=== PATIENT | female | born 1960 | race Asian ===

== ENCOUNTER → 2017-02-02 | Outpatient (CLI) | payer OTHER | LOC: BMCIMAGING 12:41 | PROVIDERS: ATTEND Internal Medicine | DX: Z12.31 Encounter for screening mammogram for malignant neoplasm of breast (principal); R92.8 Other abnormal and inconclusive findings on diagnostic imaging of breast | CPT/HCPCS: G0202 ==

== ENCOUNTER → 2017-02-16 | Outpatient (CLI) | payer OTHER | LOC: BMCIMAGING 10:28 | PROVIDERS: ATTEND Internal Medicine | DX: Z12.39 Encounter for other screening for malignant neoplasm of breast (principal); R92.0 Mammographic microcalcification found on diagnostic imaging of breast | CPT/HCPCS: G0206 ==

== ENCOUNTER → 2017-03-06 | Day surgery (SDC) | payer OTHER ==
[~2017-03-06] MED LIST: BUPIVACAINE 0.5% 10 ML SDV ONE; LIDOCAINE 1% 300 MG/30 ML SDV ONE; THROMBIN (BOVINE) 5,000 UNIT VIAL TP ONE
== END | disposition home or self-care (01) ==
LOC: FIMAGING 07:23
PROVIDERS: ATTEND Internal Medicine
PROC: 0HBU3ZX Excision of Left Breast, Percutaneous Approach, Diagnostic (ICD-10-PCS; principal; 2017-03-06)
PROC: BH01ZZZ Plain Radiography of Left Breast (ICD-10-PCS; principal; 2017-03-06)
DX: D24.2 Benign neoplasm of left breast (principal); R92.0 Mammographic microcalcification found on diagnostic imaging of breast
CPT/HCPCS: G0206

== ENCOUNTER → 2017-03-27 | Outpatient (CLI) | payer OTHER | LOC: BMCIMAGING 11:19 | PROVIDERS: ATTEND Internal Medicine | DX: Z13.820 Encounter for screening for osteoporosis (principal); M81.0 Age-related osteoporosis without current pathological fracture ==

== ENCOUNTER → 2017-04-10 | Outpatient (CLI) | payer OTHER | LOC: FIMAGING 09:07 | PROVIDERS: ATTEND Internal Medicine | DX: N64.4 Mastodynia (principal); J98.4 Other disorders of lung; J84.10 Pulmonary fibrosis, unspecified ==

== ENCOUNTER → 2017-09-04 | Outpatient (CLI) | payer OTHER | LOC: FIMAGING 11:32 | PROVIDERS: ATTEND Internal Medicine | DX: R92.8 Other abnormal and inconclusive findings on diagnostic imaging of breast (principal) ==

== ENCOUNTER → 2018-02-07 | Outpatient (CLI) | payer OTHER | LOC: FIMAGING 11:01 | PROVIDERS: ATTEND Internal Medicine | DX: Z12.31 Encounter for screening mammogram for malignant neoplasm of breast (principal) ==

== ENCOUNTER 2018-05-18 16:14 | Emergency (ER) | payer OTHER ==
[2018-05-18] MEDS ORDERED: IBUPROFEN 200 MG TAB PO ONE (16:54)
--- NOTE | 2018-05-18 16:57 | EDPHY ---
H & P Time Seen by Provider: 05/18/18 16:20 HPI/ROS: 57 yo F presents c/o right wrist pain after slipping on ice , falling on outstretched hand. No numbness or tingling. No other injuries. Review of systems As per HPI General no fever no chills no weakness HEENT no eye pain no eye discharge. No eye redness, no sore throat Respiratory no cough, no shortness of breath Cardiac no chest pain, no peripheral edema GI no abdominal pain, no diarrhea, no constipation, no nausea, no vomiting no flank pain, no hematuria, no dysuria Musculoskeletal no myalgias, positive joint pain Heme no easy bruising, no easy bleeding Endo no polyuria, no polydipsia Skin no rashes, no pruritus Neuro no syncope, no dizziness, no headaches Psych is no suicidal ideation, no homicidal ideation Past Medical/Surgical History: scleroderma Social History: teaches at [employer] Smoking Status: Never smoked Physical Exam: 57 yo F alert and oriented in mod distress secondary to right wrist pain at,nc neck supple lungs cta bilat heart rrr abd nabs soft ext right upper ext edema and ttp of distal wrist, good cap refill, good radial and ulnar pulses no discoloration of hand, wrist from elbow and shoulder Constitutional: Initial Vital Signs Temperature (C) 36.9 C 05/18/18 16:26 Heart Rate 59 L 05/18/18 16:26 Respiratory Rate 16 05/18/18 16:26 Blood Pressure 86/59 L 05/18/18 16:26 O2 Sat (%) 98 05/18/18 16:26 O2 Delivery Mode Room Air Allergies/Adverse Reactions: clindamycin Allergy (Verified 05/18/18 16:23) Penicillins Allergy (Verified 05/18/18 16:23) Home Medications: Medication Instructions Recorded Hydrocodone/Acetaminophen [Vicodin 1 each PO Q6 PRN #20 tablet 05/18/18 5-300 mg Tablet] Multivitamin 05/18/18 Refresh Classic Eye Drops 05/18/18 predniSONE [prednisone 20mg (RX)] 5 mg PO DAILY 05/18/18 Medical Decision Making - Diagnostics Imaging Results: Imaging Impressions Wrist X-Ray 05/18/18 16:43 Impression: 1. Comminuted, mildly displaced fracture of the distal radius with 9 mm impaction of the proximal shaft. Fracture line likely extends to the joint space. 2. Avulsion fracture of the ulnar styloid. 3. Angulation of the distal scaphoid, likely chronic, though underlying fracture is not entirely excluded. Hand X-Ray 05/18/18 16:44 Impression: 1. Comminuted, mildly displaced fracture of the distal radius with 9 mm impaction of the proximal shaft. Fracture line likely extends to the joint space. 2. Avulsion fracture of the ulnar styloid. 3. Angulation of the distal scaphoid, likely chronic, though underlying fracture is not entirely excluded. ED Course/Re-evaluation: pt seen and evaluated for wrist injury xray pos distal radius fx and ulnar styloid fx imp wrist fracture plan sugar tong splint sling f/u ortho Differential Diagnosis: Differential diagnosis considered but not limited to: Distal radius fracture, distal ulnar fracture, wrist sprain, hand fracture - Data Points Medications Given: Discontinued Medications Hydrocodone Bitart/Acetaminophen ([place] 5/325) 2 tab PO EDNOW ONE Stop: 05/18/18 18:16 Last Admin: 05/18/18 19:04 Dose: 2 tab Ibuprofen (Motrin) 400 mg PO EDNOW ONE Stop: 05/18/18 16:55 Last Admin: 05/18/18 17:05 Dose: 400 mg Departure - Departure Disposition: Home, Routine, Self-Care Clinical Impression: Wrist fracture, right Condition: Good Instructions: Hydrocodone/Acetaminophen (By mouth), Wrist Fracture in Adults ( ED) Referrals: NONE *PRIMARY CARE P,. [Primary Care Provider] - As per Instructions Josué Ramírez MD [Medical Doctor] - As per Instructions Stand Alone Forms: Work Excuse Prescriptions: Hydrocodone/Acetaminophen [Vicodin 5-300 mg Tablet] 1 each PO Q6 PRN #20 tablet PRN Reason: Pain, Moderate
[2018-05-18] MEDS ORDERED: HYDROCODONE/APAP 5/325 TAB PO ONE (18:15)
[2018-05-18 19:08] VITALS: BP 97/61
== END 2018-05-18 18:55 | disposition home or self-care (01) ==
LOC: CED 16:14
PROC: 2W3EX1Z Immobilization of Right Hand using Splint (ICD-10-PCS; principal; 2018-05-18)
DX: S52.501A Unspecified fracture of the lower end of right radius, initial encounter for closed fracture (principal); S52.611A Displaced fracture of right ulna styloid process, initial encounter for closed fracture; W00.0XXA Fall on same level due to ice and snow, initial encounter; Y92.480 Sidewalk as the place of occurrence of the external cause
CPT/HCPCS: 73110-PO; 73120-PO; 99284-ER; A4565-ER

== ENCOUNTER → 2018-06-21 | Outpatient (CLI) | payer OTHER | LOC: BMCIMAGING 11:15 | PROVIDERS: ATTEND Physician Assistant | DX: S52.591D Other fractures of lower end of right radius, subsequent encounter for closed fracture with routine healing (principal); Z98.890 Other specified postprocedural states ==